=== PATIENT | male | born 1985 | race Caucasian/White ===

== ENCOUNTER 2016-08-31 07:24 | Day surgery (SDC) | payer OTHER ==
[2016-08-31] MEDS ORDERED: Ketorolac 60 MG/2 ML SDV IM ONE (07:42)
[2016-08-31] MEDS ORDERED: Bupivacaine 0.5% 10 ML SDV ONE (09:24)
[2016-08-31] MEDS ORDERED: Propofol 200 MG/20 ML SDV ONE (09:25)
[2016-08-31] MEDS ORDERED: Lidocaine 2% 5 ML SDV ONE (09:25)
[2016-08-31] MEDS ORDERED: Midazolam 1 MG/ML 2 ML SDV ONE (09:25)
[2016-08-31] MEDS ORDERED: fentaNYL 250 MCG/5 ML SDV ONE (09:25)
[2016-08-31] MEDS ORDERED: Ondansetron 4 MG/2 ML SDV ONE (09:25)
--- NOTE | 2016-08-31 09:27 | PCM.PREANE ---
Preanesthetic Assessment - Procedure Proposed Procedure: Surgical treatment of testicular torsion - Anesthesia/Transfusion/Family Hx Anesthesia History: Prior Anesthesia Without Reaction Family History of Anesthesia Reaction: No Intubation History: Unknown - Review of Systems General: Other (pain in groin (began last night).) Pulmonary: No Symptoms Cardiovascular: No Symptoms Gastrointestinal: No symptoms Neurological: No Symptoms Other: Reports: None - Physical Assessment NPO Status Date: 08/30/16 NPO Status Time: 20:00 (per patient ) O2 Sat by Pulse Oximetry: 97 Respiratory Rate: 18 Vital Signs: Last Vital Signs Temp 96.8 F 08/31/16 07:45 Pulse 68 08/31/16 07:45 Resp 18 08/31/16 07:45 BP 129/74 08/31/16 07:45 Pulse Ox 97 08/31/16 07:45 Height: 5 ft 11 in Weight: 174 lb 2.643 oz ASA Class: 1E Mental Status: Alert & Oriented x3 Airway Class: Mallampati = 1 Dentition: Reports: Normal Dentition Thyro-Mental Finger Breadths: 3 (Pascal) Mouth Opening Finger Breadths: 3 ROM/Head Extension: Full Lungs: Clear to auscultation, Normal respiratory effort Cardiovascular: Regular Rate, Regular Rhythm - Allergies Allergies/Adverse Reactions: Allergies Allergy/AdvReac Type Severity Reaction Status Date / Time No Known Allergies Allergy Verified 08/31/16 07:45 - Blood Blood Available: No Product(s) Available: None - Anesthesia Plan Free Text/Narrative:: I V left antecubital in place. Consents to genral anesthetic. Pre-Op Medication Ordered: None - Acknowledgements Anesthesia Type Planned: General Anesthesia (LMA vs OET) Pt an Appropriate Candidate for the Planned Anesthesia: Yes Alternatives and Risks of Anesthesia Discussed w Pt/Guardian: Yes Pt/Guardian Understands and Agrees with Anesthesia Plan: Yes PreAnesthesia Questionnaire Genitourinary History: Reports: Other (See Below) Other Genitourinary History: Epididymitis Musculoskeletal History: Reports: Fracture - Past Surgical History Musculoskeletal Surgical History: Reports: Other (See Below) Other Musculoskeletal Surgeries/Procedures:: Foot and wrist surgery - SUBSTANCE USE Smoking Status *Q: Current Every Day Smoker Recreational Drug Use History: No - HOME MEDS Home Medications: Home Meds . [No Known Home Meds] 08/31/16 [History] - CURRENT (IN HOUSE) MEDS Current Meds: Current Medications Discontinued Medications Ketorolac Tromethamine (Toradol) 60 mg IM ONETIME ONE Stop: 08/31/16 07:43 Last Admin: 08/31/16 08:10 Dose: 60 mg
--- NOTE | 2016-08-31 09:33 | EDM.PDOC ---
ED HPI GENERAL MEDICAL PROBLEM - General Chief Complaint: Genitourinary Problem Stated Complaint: SWOLLEN TESTICLE Time Seen by Provider: 08/31/16 07:30 Source of Information: Reports: Patient History Limitations: Reports: No Limitations - History of Present Illness INITIAL COMMENTS - FREE TEXT/NARRATIVE: History of present illness: []Patient started having right testicular pain at 12 AM last night. Had this pain in the past was diagnosed with epididymitis. Eyes any trauma, penile discharge, fevers, chills or any other pain. Review of systems: As per history of present illness and below otherwise all systems reviewed and negative. Past medical history: As per history of present illness and as reviewed below otherwise noncontributory. Surgical history: As per history of present illness and as reviewed below otherwise noncontributory. Social history: No reported history of drug or alcohol abuse. Family history: As per history of present illness and as reviewed below otherwise noncontributory. Physical exam: General: Well developed, well nourished in NAD HEENT: Atraumatic, normocephalic, pupils reactive, negative for conjunctival pallor or scleral icterus, mucous membranes moist, throat clear, neck supple, nontender, trachea midline. Lungs: Clear to auscultation, breath sounds equal bilaterally, chest nontender. Heart: S1S2, regular, negative for clicks, rubs, or JVD. Abdomen: Soft, nondistended, nontender. Negative for masses or hepatosplenomegaly. Negative for costovertebral tenderness. Pelvis: Stable nontender. Genitourinary: Right testicular swelling and tenderness there is no erythema perineum is normal Rectal: Deferred. Extremities: Atraumatic, negative for cords or calf pain. Neurovascular unremarkable. Neuro: Awake, alert, oriented. Cranial nerves II through XII unremarkable. Cerebellum unremarkable. Motor and sensory unremarkable throughout. Exam nonfocal. Diagnostics: []Ultrasound shows testicular torsion right testicle Therapeutics: []Patient is given Toradol for pain Impression: []Right testicular torsion Plan: []Dr. Enamorado was consulted and is taking this patient to surgery Definitive disposition and diagnosis as appropriate pending reevaluation and review of above. Right Testicle Pain Score (Numeric/FACES): 8 - Related Data Allergies Allergy/AdvReac Type Severity Reaction Status Date / Time No Known Allergies Allergy Verified 08/31/16 07:45 Home Meds: Home Meds . [No Known Home Meds] 08/31/16 [History] Past Medical History Genitourinary History: Reports: Other (See Below) Other Genitourinary History: Epididymitis Musculoskeletal History: Reports: Fracture - Past Surgical History Musculoskeletal Surgical History: Reports: Other (See Below) Other Musculoskeletal Surgeries/Procedures:: Foot and wrist surgery Social & Family History - Family History Family Medical History: Noncontributory - Tobacco Use Smoking Status *Q: Current Every Day Smoker Years of Tobacco use: 20 Packs/Tins Daily: 1 - Recreational Drug Use Recreational Drug Use: No ED ROS GENERAL - Review of Systems Review Of Systems: See Below (See history of present illness) ED EXAM, RENAL/ - Physical Exam Exam: See Below (See history of present illness) Course - Vital Signs Last Recorded V/S: Last Vital Signs Temp 36.0 C 08/31/16 07:45 Pulse 68 08/31/16 07:45 Resp 18 08/31/16 07:45 BP 129/74 08/31/16 07:45 Pulse Ox 97 08/31/16 07:45 - Orders/Labs/Meds Orders: Active Orders 24 hr Category Date Time Status Notify Provider Consults [RC] ASDIRECTED Care 08/31/16 08:24 Active Consult to Physician [CONS] Stat Cons 08/31/16 08:23 Active Scrotal Duplex Ltd [US] Routine Exams 08/31/16 Taken Testicular US [Scrotum and Contents] [US] Stat Exams 08/31/16 07:39 Taken CHLAMYDIA TRACHOMATIS/GC AMPLF Stat Lab 08/31/16 07:38 Ordered UA W/MICROSCOPIC [URIN] Stat Lab 08/31/16 07:38 Uncollected Meds: Medications Discontinued Medications Generic Name Dose Route Start Last Admin Trade Name Freq PRN Reason Stop Dose Admin Ketorolac Tromethamine 60 mg 08/31/16 07:42 08/31/16 08:10 Toradol IM 08/31/16 07:43 60 mg ONETIME ONE Administration Departure - Departure Time of Disposition: 09:26 Disposition: Still A Patient 31 Condition: good Clinical Impression: Right testicular torsion - Discharge Information Forms: ED Department Discharge - My Orders Last 24 Hours: My Active Orders 08/31/16 Scrotal Duplex Ltd [US] Routine 08/31/16 07:38 CHLAMYDIA TRACHOMATIS/GC AMPLF Stat UA W/MICROSCOPIC [URIN] Stat 08/31/16 07:39 Testicular US [Scrotum and Contents] [US] Stat 08/31/16 08:23 Consult to Physician [CONS] Stat 08/31/16 08:24 Notify Provider Consults [RC] ASDIRECTED - Assessment/Plan Last 24 Hours: My Active Orders 08/31/16 Scrotal Duplex Ltd [US] Routine 08/31/16 07:38 CHLAMYDIA TRACHOMATIS/GC AMPLF Stat UA W/MICROSCOPIC [URIN] Stat 08/31/16 07:39 Testicular US [Scrotum and Contents] [US] Stat 08/31/16 08:23 Consult to Physician [CONS] Stat 08/31/16 08:24 Notify Provider Consults [RC] ASDIRECTED
[2016-08-31] MEDS ORDERED: Sodium Chloride 0.9% 20 ML ONE (09:57)
[2016-08-31] MEDS ORDERED: ceFAZolin 1 GM Vial ONE (09:57)
[2016-08-31] MEDS ORDERED: HYDROmorphone 2 MG/ML Syringe ONE (09:58)
[2016-08-31] MEDS ORDERED: ePHEDrine 50 MG/ML SDV ONE (10:29)
[2016-08-31] MEDS ORDERED: fentaNYL 100 MCG/2 ML SDV IVPUSH PRN (11:10)
--- NOTE | 2016-08-31 11:24 | US ---
EXAM DATE: 08/31/16 PATIENT'S AGE: 31 Patient: LEYDA RUIZ Facility: [place], [place] Site . Site : 1985 Study: US Testicle [id number]/9/2017 8:05:21 AM Ordering Physician: Joseph Morley Final Report: INDICATION: Right testicular pain and swelling. FINDINGS: A testicular ultrasound shows absence of blood flow to the right testicle. Right testicle is otherwise normal in size, contour, echogenicity and measures 5.4 x 3.4 x 3.2 cm. Normal appearance of the left testicle which measures 4.4 x 3.4 x 2.4 cm. Color and spectral Doppler analysis shows normal arterial and venous blood flow to the left testicle. Normal appearance of the epididymides. Trace right-sided hydrocele. IMPRESSION: 1. No right testicular blood flow identified likely secondary to testicular torsion. Note: findings discussed with and acknowledged by Dr. Ruiz on 31 August 2016 at 0815 hours. Dictated by Pradeep Sawyer MD @ 08/31/2016 8:16:53 AM Dictated by: Pradeep Sawyer MD @ 08/31/2016 08:17:10 (Electronic Signature) Report Signed by Proxy. ISAK
--- NOTE | 2016-08-31 11:25 | US ---
EXAM DATE: 08/31/16 PATIENT'S AGE: 31 Patient: LEYDA RUIZ Facility: [place], [place] Site . Site : 1985 Study: US Testicle [id number]/9/2017 8:05:21 AM Ordering Physician: Joseph Morley Final Report: INDICATION: Right testicular pain and swelling. FINDINGS: A testicular ultrasound shows absence of blood flow to the right testicle. Right testicle is otherwise normal in size, contour, echogenicity and measures 5.4 x 3.4 x 3.2 cm. Normal appearance of the left testicle which measures 4.4 x 3.4 x 2.4 cm. Color and spectral Doppler analysis shows normal arterial and venous blood flow to the left testicle. Normal appearance of the epididymides. Trace right-sided hydrocele. IMPRESSION: 1. No right testicular blood flow identified likely secondary to testicular torsion. Note: findings discussed with and acknowledged by Dr. Ruiz on 31 August 2016 at 0815 hours. Dictated by Pradeep Sawyer MD @ 08/31/2016 8:16:53 AM Dictated by: Pradeep Sawyer MD @ 08/31/2016 08:17:10 (Electronic Signature) Report Signed by Proxy. ISAK
--- NOTE | 2016-08-31 12:04 | PCM.POSTAN ---
POST ANESTHESIA ASSESSMENT - MENTAL STATUS Mental Status: alert, oriented - RESPIRATORY Respiratory Status: respiratory rate WNL, airway patent, O2 saturation stable - CARDIOVASCULAR CV Status: pulse rate WNL, blood pressure stable - GASTROINTESTINAL GI Status: no symptoms - POST OP HYDRATION Hydration Status: adequate & stable
--- NOTE | 2016-08-31 12:21 | PCM48HPAN ---
Post Anesthesia Note - EVALUATION WITHIN 48HRS OF ANESTHETIC Vital Signs in Normal Range: Yes Patient Participated in Evaluation: Yes Respiratory Function Stable: Yes Airway Patent: Yes Cardiovascular Function Stable: Yes Hydration Status Stable: Yes Pain Control Satisfactory: Yes (no pain noted by patient) Nausea and Vomiting Control Satisfactory: Yes Mental Status Recovered: Yes - COMMENTS/OBSERVATIONS Free Text/Narrative:: Discharged to home with friend, no complaint, coffee praised, pleased with speedy care.
[2016-08-31 13:46] VITALS: BP 133/91
--- NOTE | 2016-08-31 15:27 | CONS ---
DATE OF CONSULTATION: DATE OF : 1985 PRIMARY CARE PHYSICIAN: None PCP HISTORY OF PRESENT ILLNESS: This 31 years old started having right testicular pain about midnight, presented to the emergency room, and by the time I saw him was about 8:30 a.m. He already had a scrotal ultrasound that showed no flow to the right testicle. He had previous epididymitis in the past some years back. PAST MEDICAL HISTORY: Otherwise negative. PAST SURGICAL HISTORY: No surgical history. ALLERGIES: No allergies. MEDICATIONS: He takes no medications. PHYSICAL EXAMINATION: GENERAL: Appearance is normal. He is alert and oriented. VITAL SIGNS: Normal. HEART: Normal sinus rhythm. LUNGS: Clear. ABDOMEN: Negative. EXTERNAL GENITALIA: Penis is normal. Left testicle is normal. Right testis is slightly tender. IMPRESSION: Testicular torsion that might have already reversed itself as the findings on clinical exam are not striking, history of epididymitis. RECOMMENDATION: Bilateral orchiopexy and bilateral vasectomy to guard against the future epididymitis. The patient is expressing understanding and agreement. EVERARDO CAIN /[id number]
--- NOTE | 2016-08-31 16:33 | OR ---
SURGEON: Deepthi Enamorado M.D. DATE OF PROCEDURE: 08/31/2016 PREOPERATIVE DIAGNOSES: Right testicular torsion and history of epididymitis. POSTOPERATIVE DIAGNOSES: Right testicular torsion and history of epididymitis. OPERATION: Bilateral orchiopexy and bilateral vasectomy. DESCRIPTION OF PROCEDURE: The patient was given general anesthesia, placed in supine position. The lower abdomen and external genitalia were all prepped and draped in sterile drapes. A transverse incision was made in the right scrotal sac. The testicle was delivered to the outside. The vas was identified, a piece of which was removed. The ends were ligated with 2-0 silk. The attempts were fulgurated. The testicle was biopsied. It was then fixed in place with three sutures of 3-0 silk; one on the medial side, one on the lateral side, and one on the lower pole. The incision was then closed using a running suture of 3-0 chromic for the subcutaneous and muscle layers. The skin was closed with interrupted 3-0 chromic sutures. The same thing was done on the other side with the exception of a biopsy. The patient tolerated the procedure well and was moved to recovery room in good condition. EVERARDO / ANT /[id number]
== END 2016-08-31 12:18 | disposition home or self-care (01) ==
LOC: MW.ED 07:24 → MW.SDS 09:36
PROVIDERS: ATTEND Urology
DX: N44.8 Other noninflammatory disorders of the testis (principal); N50.89 Other specified disorders of the male genital organs; Z98.890 Other specified postprocedural states; F17.210 Nicotine dependence, cigarettes, uncomplicated
CPT/HCPCS: 54640; 55250; 76870; 88302; 88304; 88305; 93976; 96372; 99285; J0690; J1170; J1885; J2250; J2405; J3010; 00930; J2704

== ENCOUNTER 2018-05-30 22:23 | Emergency (ER) | payer OTHER ==
[2018-05-30] MEDS ORDERED: Tetracaine HCl/PF 0.5% 4 ML Bottle EYERT ONE (22:28)
--- NOTE | 2018-05-30 22:46 | EDM.PDOC ---
ED HPI GENERAL MEDICAL PROBLEM - General Chief Complaint: Eye Problems Stated Complaint: metal in right eye Time Seen by Provider: 05/30/18 22:33 - History of Present Illness INITIAL COMMENTS - FREE TEXT/NARRATIVE: HISTORY AND PHYSICAL: History of present illness: The patient is a 33-year-old male who does not wear glasses or contact lenses and presents with complaints of foreign body sensation in his right eye that started yesterday when he was working with metal. He said a small flake went into his right eye and he has been having discomfort more with light exposure and came in for evaluation. He did not irrigate his eyes and has no other systemic complaints. He says he has been rubbing his eye due to discomfort and itchiness. Review of systems: As per history of present illness and below otherwise all systems reviewed and negative. Past medical history: As per history of present illness and as reviewed below otherwise noncontributory. Surgical history: As per history of present illness and as reviewed below otherwise noncontributory. Social history: No reported history of drug or alcohol abuse. Family history: As per history of present illness and as reviewed below otherwise noncontributory. Physical exam: General: Well-developed well-nourished man who is nontoxic and has no facial swelling or periorbital swelling. Vital signs are noted by me HEENT: Atraumatic, normocephalic, pupils reactive, negative for conjunctival pallor or scleral icterus, mucous membranes moist, throat clear, neck supple, nontender, trachea midline. Sclera is very injected on the right and fluoroscein stain was performed please see below. EOMs are grossly intact Lungs: Clear to auscultation, breath sounds equal bilaterally, chest nontender. Heart: S1S2, regular in rhythm no overt murmurs Abdomen: Soft, nondistended, nontender. NABS Pelvis: Deferred Genitourinary: Deferred. Rectal: Deferred. Extremities: Atraumatic full range of motion Neurovascular unremarkable. Neuro: Awake, alert, oriented. Cranial nerves II through XII unremarkable. Cerebellum unremarkable. Motor and sensory unremarkable throughout. Exam nonfocal. Diagnostics: Visual acuity is 20/20 each eye individually and together Fluoroscein stain was performed after tetracaine was instilled and 2 small areas of uptake consistent with a foreign bodies are seen just to the right of the pupil but medial to the rim of the iris. Patient tolerated the procedure well but the exam was very challenging as the patient was not very cooperative. There were no complications Therapeutics: Tetracaine 2242: case was discussed with her test designer Dr. Paula; he will see the patient on Saturday morning at 9 AM Impression: Retained foreign body to right eye Definitive disposition and diagnosis as appropriate pending reevaluation and review of above. right eye Pain Score (Numeric/FACES): 4 - Related Data Allergies Allergy/AdvReac Type Severity Reaction Status Date / Time No Known Allergies Allergy Verified 05/30/18 22:26 Home Meds: Home Meds . [No Known Home Meds] 08/31/16 [History] Past Medical History Genitourinary History: Reports: Other (See Below) Other Genitourinary History: Epididymitis Musculoskeletal History: Reports: Fracture - Past Surgical History Musculoskeletal Surgical History: Reports: Other (See Below) Other Musculoskeletal Surgeries/Procedures:: Foot and wrist surgery Social & Family History - Family History Family Medical History: Noncontributory ED ROS GENERAL - Review of Systems Review Of Systems: ROS reveals no pertinent complaints other than HPI. ED EXAM GENERAL W FULL EYE - Physical Exam Exam: See Below (See dictation) Course - Vital Signs Last Recorded V/S: Last Vital Signs Temp 36.4 C 05/30/18 22:24 Pulse 110 H 05/30/18 22:24 Resp 18 05/30/18 22:24 BP 135/75 05/30/18 22:24 Pulse Ox 95 05/30/18 22:24 - Orders/Labs/Meds Orders: Active Orders 24 hr Category Date Time Status Communication Order [RC] STAT Care 05/30/18 22:29 Active Meds: Medications Discontinued Medications Generic Name Dose Route Start Last Admin Trade Name Freq PRN Reason Stop Dose Admin Tetracaine HCl 1 ml 05/30/18 22:28 05/30/18 22:31 Tetracaine 0.5% Steri-Unit Brielle EYERT 05/30/18 22:29 2 drop ASDIRECTED ONE Administration Departure - Departure Time of Disposition: 22:46 Disposition: Home, Self-Care 01 Condition: Good Clinical Impression: Retained foreign body of eye Qualifiers: Laterality: right Qualified Code(s): H44.701 - Unspecified retained (old) intraocular foreign body, nonmagnetic, right eye; Z18.9 - Retained foreign body fragments, unspecified material - Discharge Information Referrals: PCP,None [Primary Care Provider] - Additional Instructions: The following information is given to patients seen in the emergency department who are being discharged to home. This information is to outline your options for follow-up care. We provide all patients seen in our emergency department with a follow-up referral. The need for follow-up, as well as the timing and circumstances, are variable depending upon the specifics of your emergency department visit. If you don't have a primary care physician on staff, we will provide you with a referral. We always advise you to contact your personal physician following an emergency department visit to inform them of the circumstance of the visit and for follow-up with them and/or the need for any referrals to a consulting specialist. The emergency department will also refer you to a specialist when appropriate. This referral assures that you have the opportunity for followup care with a specialist. All of these measure are taken in an effort to provide you with optimal care, which includes your followup. Under all circumstances we always encourage you to contact your private physician who remains a resource for coordinating your care. When calling for followup care, please make the office aware that this follow-up is from your recent emergency room visit. If for any reason you are refused follow-up, please contact the [facility] emergency department at and ask to speak to the emergency department charge nurse. [facility] [address] [place] [address] Please go to the clinic on Saturday morning at 9 AM to be seen by Dr. Paula; he knows about you and has your name and is expecting with this time. At that point he will do a complete eye exam and remove any retained foreign bodies. Please avoid bright light and wear dark sunglasses to protect her eyes. Use over -the-counter Tylenol or ibuprofen for pain and did not use any other over-the- counter eyedrops until you're seen by the physician. Return to ER as needed and as discussed - My Orders Last 24 Hours: My Active Orders 05/30/18 22:29 Communication Order [RC] STAT - Assessment/Plan Last 24 Hours: My Active Orders 05/30/18 22:29 Communication Order [RC] STAT
[2018-05-30 22:57] VITALS: BP 136/74
== END 2018-05-30 22:58 | disposition home or self-care (01) ==
LOC: MW.ED 22:23
DX: H44.701 Unspecified retained (old) intraocular foreign body, nonmagnetic, right eye (principal); Z18.9 Retained foreign body fragments, unspecified material
CPT/HCPCS: 99283